=== PATIENT | male | born 1980 | race Hispanic/Latino ===

== ENCOUNTER 2018-03-29 06:32 | Emergency (ER) | payer OTHER ==
[2018-03-29] MEDS ORDERED: IBUPROFEN 600 MG TABLET ONE (06:53)
== END 2018-03-29 07:07 | disposition home or self-care (01) ==
LOC: EDH 06:32
DX: M19.171 Post-traumatic osteoarthritis, right ankle and foot (principal); M25.571 Pain in right ankle and joints of right foot
CPT/HCPCS: 99282

== ENCOUNTER 2019-10-21 21:04 | Emergency (ER) | payer OTHER ==
[2019-10-21] MEDS ORDERED: KETOROLAC TROMETHAMINE 60 MG/2 ML VIAL ONE (21:22)
[2019-10-21] MEDS ORDERED: KETAMINE 50MG/ML SYRINGE 50 MG/ML DISP.SYRIN IV ONE (21:52)
== END 2019-10-22 00:03 | disposition left against medical advice (07) ==
LOC: EDH 21:04
DX: S43.085A Other dislocation of left shoulder joint, initial encounter (principal); S00.81XA Abrasion of other part of head, initial encounter; R03.0 Elevated blood-pressure reading, without diagnosis of hypertension; W10.1XXA Fall (on)(from) sidewalk curb, initial encounter; Y93.61 Activity, american tackle football; Y92.098 Other place in other non-institutional residence as the place of occurrence of the external cause; Y99.8 Other external cause status
CPT/HCPCS: 23650; 71045; 73020 ×2; 73030; 73060; 96372; 99285; J1885; J3490

== ENCOUNTER 2020-12-21 08:14 | Emergency (ER) | payer SELFPAY ==
[2020-12-21] MEDS ORDERED: ORPHENADRINE CITRATE 30 MG/ML ML ONE (08:52)
[2020-12-21] MEDS ORDERED: LIDOCAINE 5% TOPICAL PATCH TP ONE (08:52)
[2020-12-21] MEDS ORDERED: KETOROLAC 60 MG VIAL (30MG/ML) ONE (08:52)
[2020-12-21] MEDS ORDERED: MORPHINE 4 MG SYG ONE (08:53)
== END 2020-12-21 10:40 | disposition home or self-care (01) ==
LOC: EDH 08:14
DX: M62.830 Muscle spasm of back (principal); I10 Essential (primary) hypertension; Z72.0 Tobacco use
CPT/HCPCS: 96372 ×3; 99284; J1885; J2270; J2360

== ENCOUNTER 2023-12-06 11:07 | Emergency (ER) | payer OTHER ==
[~2023-12-06] VITALS: Ht 170.2 cm; Wt 88.5 kg
[2023-12-06 11:38] VITALS: BP 170/99; O2SAT 99
[2023-12-06 12:12] LABS: RAPID GROUP A STREP negative (NEGATIVE)
[2023-12-06 12:15] LABS: SARS-CoV-2, RNA, NAAT NEGATIVE SARS CoV-2 (NEGATIVE)
[2023-12-06 12:23] LABS: INFLUENZA TYPE A Negative For Type A (NEGATIVE); INFLUENZA TYPE B Negative For Type B (NEGATIVE)
[2023-12-06 13:04] LABS: APPEARANCE,URINE CLEAR (CLEAR); BILIRUBIN,URINE NEGATIVE (NEGATIVE); COLOR,URINE YELLOW (YELLOW); GLUCOSE, URINE (UA) NEGATIVE (NEGATIVE); KETONES,URINE NEGATIVE (NEGATIVE); LEUKOCYTE ESTERASE ,URINE 500 Leu/uL (NEGATIVE); NITRATE,URINE NEGATIVE (NEGATIVE); PH,URINE 6.5 (5.0-8.0); PROTEIN,URINE 30 mg/dL (NEGATIVE); UROBILINOGEN,URINE 0.2 mg/dL (0.2-1.0)
[2023-12-06 13:14] LABS: ADD UA MICROSCOPIC YES
[2023-12-06 13:31] LABS: MUCUS,URINE RARE LPF (None Seen); SQUAMOUS EPITHELIAL CELL,UR RARE /HPF (0-2); UNCLASSIFIED CRYSTAL 2 /HPF (None Seen); WBC,URINE 51-100 /HPF (0-1)
[2023-12-06 13:45] VITALS: PULSE 85; RESP 18
[2023-12-06] MEDS ORDERED: ALBUHFA IH (14:02)
[2023-12-06] MEDS ORDERED: FLUT16H NASAL (14:02)
[2023-12-06] MEDS ORDERED: PENI500T2 PO (14:02)
[2023-12-06] MEDS: ALBUTEROL 0.083% 2.5 MG/3 ML INH IH ONE (14:18)
[2023-12-06] MEDS: SOLU-MEDROL 125MG VIAL IM ONE (14:24)
[2023-12-06] MEDS: KETOROLAC 60 MG VIAL (30MG/ML) IM ONE (14:24)
[2023-12-06] MEDS: PENICILLIN V POTASSIUM 500 MG TABLET PO ONE (14:25)
== END 2023-12-06 14:33 | disposition home or self-care (01) ==
LOC: EDH 11:07
DX: J00 Acute nasopharyngitis [common cold] (principal); J40 Bronchitis, not specified as acute or chronic; N39.0 Urinary tract infection, site not specified; Z20.822 Contact with and (suspected) exposure to COVID-19
CPT/HCPCS: 99284; 87635; 87088; 87880; 87804 ×2; 81001; 96372 ×2; 94640; J2930; J1885